=== PATIENT | female | born 1970 | race Asian ===

== ENCOUNTER → 2017-07-19 | Outpatient (CLI) | payer OTHER | END | disposition home or self-care (01) | LOC: RADPV 13:27 | PROVIDERS: ATTEND Legal Medicine | DX: M25.531 Pain in right wrist (principal); M25.532 Pain in left wrist; M25.511 Pain in right shoulder ==

== ENCOUNTER → 2017-09-13 | Outpatient (CLI) | payer OTHER | END | disposition home or self-care (01) | LOC: RADMN 14:17 | PROVIDERS: ATTEND Legal Medicine | DX: M75.81 Other shoulder lesions, right shoulder (principal) | CPT/HCPCS: 73221 ==

== ENCOUNTER → 2018-12-23 | Outpatient (CLI) | payer OTHER | END | disposition home or self-care (01) | LOC: RADPV 11:43 | PROVIDERS: ATTEND Legal Medicine | DX: M25.532 Pain in left wrist (principal); M79.642 Pain in left hand ==

== ENCOUNTER → 2021-05-19 | Outpatient (CLI) | payer OTHER ==
[~2021-05-19] MED LIST: REGADENOSON 0.4 MG/5 ML PF SYRINGE IVP ONE
[2021-05-19 09:59] VITALS: BP 116/80
[2021-05-19 13:22] VITALS: BP 116/79
== END | disposition home or self-care (01) ==
LOC: CARDMN 08:11
PROVIDERS: ATTEND Internal Medicine Cardiovascular Disease
DX: R07.9 Chest pain, unspecified (principal); I50.1 Left ventricular failure, unspecified
CPT/HCPCS: 78452; 93017; 93306; J2785

== ENCOUNTER → 2021-08-01 | Outpatient (CLI) | payer OTHER | END | disposition home or self-care (01) | LOC: LABPV 10:03 | PROVIDERS: ATTEND Legal Medicine | DX: M17.0 Bilateral primary osteoarthritis of knee (principal) | CPT/HCPCS: 73562-TC ==